=== PATIENT | female | born 1970 | race Native Hawaiian/Other Pacific Islander ===

== ENCOUNTER 2020-12-31 13:24 | Outpatient (CLI) | payer OTHER | END 2020-12-31 19:26 | disposition home or self-care (01) | LOC: RAD 13:24 | PROVIDERS: ATTEND Physician Assistant | DX: M25.522 Pain in left elbow (principal) ==

== ENCOUNTER 2021-01-21 12:36 | Outpatient (CLI) | payer OTHER | END 2021-01-21 19:42 | disposition home or self-care (01) | LOC: RAD 12:36 | PROVIDERS: ATTEND Physician Assistant | DX: M54.2 Cervicalgia (principal) ==

== ENCOUNTER 2022-09-01 13:13 | Outpatient (CLI) | payer OTHER | END 2022-09-01 19:29 | disposition home or self-care (01) | LOC: RAD 13:13 | PROVIDERS: ATTEND Physician Assistant | DX: M25.522 Pain in left elbow (principal) ==